=== PATIENT | male | born 1955 | race Caucasian/White ===

== ENCOUNTER 2016-10-28 05:21 | Day surgery (SDC) | payer OTHER ==
[2016-10-28] VITALS (9 sets, daily range): BP systolic 118–164; BP diastolic 72–86; PULSE 72–94; RESP 13–20; Ht 167.6 cm; Wt 78.8 kg
[~2016-10-28] VITALS: Ht 167.6 cm; Wt 78.8 kg
[2016-10-28] MEDS ORDERED: AMLO-145 PO (06:06)
[2016-10-28] MEDS ORDERED: GLIM4TAB PO (06:06)
[2016-10-28] MEDS ORDERED: VALS1TAB82 PO (06:06)
[2016-10-28] MEDS ORDERED: PANT40TA4 PO (06:06)
[2016-10-28] MEDS ORDERED: METF1000 PO (06:06)
[2016-10-28] MEDS ORDERED: CLON-379 PO (06:07)
[2016-10-28] MEDS ORDERED: INSU300I SQ (06:08)
[2016-10-28] MEDS ORDERED: LIDOCAINE 2%/EPI 30 ML INJ ONE (06:26)
[2016-10-28] MEDS ORDERED: TOBRAMYCIN/DEXAMETH 3.5 GM OPH OINT ONE (06:27)
[2016-10-28] MEDS ORDERED: TETRACAINE 0.5% 4 ML OPH ONE (06:27)
[2016-10-28] MEDS ORDERED: METHYLENE BLUE 1% 10 ML INJ ONE (06:27)
[2016-10-28] MEDS ORDERED: LIDOCAINE 1% (MPF) 10 ML INJ ONE (06:27)
[2016-10-28] MEDS ORDERED: PHENYLephrine 10% 5 ML OPH ONE (06:28)
[2016-10-28] MEDS ORDERED: FENTAnyl 50 MCG/ML VIAL ONE (06:49)
[2016-10-28] MEDS ORDERED: LIDOCAINE 2% (SDV) 5 ML INJ ONE (06:50)
[2016-10-28] MEDS ORDERED: PROPOFOL 20 ML ONE (06:50)
[2016-10-28] MEDS ORDERED: MITOMYCIN 5 MG INJ OP ONE (07:00)
[2016-10-28] MEDS ORDERED: BALANCED SALT SOLN 15 ML OPH IRRIG ONE (07:00)
[2016-10-28] MEDS ORDERED: PROPOFOL 200 MG INJ ONE (07:00)
[2016-10-28] MEDS ORDERED: LIDOCAINE 2%/EPI MPF (SDV) 20 ML VIAL INJ ONE (07:15)
[2016-10-28] MEDS ORDERED: TETRACAINE 0.5% 4 ML OPH LEFT EYE ONE (07:26)
[2016-10-28] MEDS ORDERED: PHENYLephrine 10% 5 ML OPH LEFT EYE ONE (07:28)
--- NOTE | 2016-10-28 07:33 | HPN ---
Date/Time of Note Date/Time of Note DATE: 10/28/16 TIME: 07:32 Interval H&P Admission Note Pt. seen H&P reviewed: No system changes ABELARDO PERSON MD Oct 28, 2016 07:33
[2016-10-28] MEDS ORDERED: TOBRAMYCIN/DEXAMETH 3.5 GM OPH OINT LEFT EYE ONE (08:14)
--- NOTE | 2016-10-28 08:45 | OPR ---
Date/Time of Note Date/Time of Note DATE: 10/28/16 TIME: 08:42 Operative Report Preoperative Diagnosis pterygium left eye Postoperative Diagnosis same Operation/Procedure Performed excision of ptrrygium Surgeon: ABELARDO PERSON MD Anesthesia Type: MAC Estimated Blood Loss: none Transfusion Required: no Specimen: none Grafts/Implants: none Complications: no ABELARDO PERSON MD Oct 28, 2016 08:45
[2016-10-28] MEDS ORDERED: OXYCODONE/ACETAMINOPHEN (5/325) TAB PO PRN ×2 (09:00)
[2016-10-28] MEDS ORDERED: METOCLOPRAMIDE 10 MG INJ IV PRN (09:00)
[2016-10-28] MEDS ORDERED: FENTAnyl 50 MCG/ML VIAL IV PRN ×2 (09:00)
[2016-10-28] MEDS ORDERED: ONDANSETRON 4 MG INJ IV PRN (09:00)
[2016-10-28] MEDS ORDERED: HYDROCODONE/APAP (5/325) TAB PO ONE (09:30)
--- NOTE | 2016-10-28 11:18 | OPR ---
DATE OF OPERATION: 10/28/2016 SURGEON: Ranjana Kwan MD. GARBAGE COLLECTOR: None. PREOPERATIVE DIAGNOSIS: Pterygium, left eye. POSTOPERATIVE DIAGNOSIS: Pterygium, left eye. OPERATION: Excision of pterygium, left eye; application of mitomycin C; closure of defect with conjunctival advancement flaps. DESCRIPTION OF PROCEDURE: Following standard preparation and draping of the patient, a solid-blade lid speculum was placed for immobilization of the lids. A small amount of 2 percent Xylocaine with epinephrine was injected beneath the body of the pterygium so as to elevate it from the underlying sclerae. After adequate local anesthesia was obtained, Tisha scissors were simply used to make an incision along the edges of the pterygium, amputating the body approximately 1 cm posterior to the limbus. At the limbus, the major portion of the tissue was simply excised using sharp scissors. Using a rotating colin bur, all of the scar tissue on the cornea was removed down to clear cornea. At this point, bleeding points were secured with the heat cautery. Mitomycin C (0.2 mg/ml) was now applied to the limbal regions for three minutes. After three minutes, the eye was copiously irrigated with balanced salt solution. A peritomy was now performed both superiorly and inferiorly and relaxing incisions made at approximately the 6 and 12 o'clock positions. The undermining conjunctiva was now pulled both superiorly and inferiorly so as to close the previously made defect from which the pterygium had been removed. Sutures of interrupted #8-0 Vicryl were used and a bite of the underlying sclera was taken so as to ensure adequate maintenance of the flaps in a non-movable position. Betadine 5 percent solution was placed on the eye, along with TobraDex ointment. A light pressure dressing was applied, and the patient returned to the recovery room in satisfactory condition. Dictated By: Ranjana Kwan MD /adrienne/kajal /Document#: [id number]
== END 2016-10-28 09:50 | disposition home or self-care (01) ==
LOC: SDS 05:21
PROVIDERS: ATTEND Ophthalmology
DX: H11.002 Unspecified pterygium of left eye (principal); I10 Essential (primary) hypertension; E11.9 Type 2 diabetes mellitus without complications
CPT/HCPCS: 65426; 82962; J3010; J9280; Z7512; Z7610

== ENCOUNTER 2017-04-30 05:31 | Day surgery (SDC) | END 2017-04-30 11:00 | disposition home or self-care (01) ==